=== PATIENT | male | born 1970 | race Caucasian/White ===

== ENCOUNTER 2016-12-02 16:20 | Emergency (ER) | payer OTHER ==
[2016-12-02 16:27] VITALS: RESP 16; O2SAT 95
--- NOTE | 2016-12-02 16:40 | CPEKG ---
Heart Rate: 98 RR Interval: 612 P-R Interval: 152 QRSD Interval: 96 QT Interval: 348 QTC Interval: 445 P Kindred: 73 QRS Kindred: 82 T Wave Kindred: 33 EKG Severity - NORMAL ECG - EKG Impression: SINUS RHYTHM Electronically Signed By: Lai Murphy 02-Dec-2016 17:25:33
--- NOTE | 2016-12-02 17:01 | EDPHY ---
H & P Time Seen by Provider: 12/02/16 16:32 HPI/ROS: CHIEF COMPLAINT: Palpitations and cough HISTORY OF PRESENT ILLNESS: This 46-year-old man had symptoms 1st on Thursday when he was driving to work. He felt his heart was "stopped" and felt like he was going to faint but did not actually pass out. He then felt his heart racing and felt congested in his chest with symptoms resolved after several minutes. On Thursday he felt better but still to cough. He had a cough on Thursday although the last 2 days he has felt intermittent irregular heartbeat and some tightness in his chest and continued cough. These were not associated with syncope. Symptoms not currently present. REVIEW OF SYSTEMS: Eye: no change in vision ENT: no sore throat Cardiac: HPI Pulmonary: No hemoptysis or shortness of breath Abdomen: no vomiting, diarrhea, abdominal pain Musculoskeletal: no back pain or leg swelling Skin: no rash Neuro: no headache Constitutional: no fever : no urinary symptoms A comprehensive 10 point review of systems is otherwise negative aside from elements mentioned in the history of present illness. PAST MEDICAL HISTORY: Negative. Denies hypercholesterolemia, diabetes, hypertension. Social history: No tobacco or cocaine. Negative family history for venous thromboembolism or coronary artery disease at his age. No recent prolonged travel or immobilization. General Appearance: Alert and conversant, cooperative. Eyes: No scleral icterus. ENT, Mouth: Normal mucous membranes. Respiratory: Normal respiratory effort, breath sounds equal, lungs are clear to auscultation. Cardiovascular: Regular rate and rhythm. Gastrointestinal: Abdomen is soft and non tender. Neurological: Alert and oriented x3. Normally conversant. Face symmetric, normal movement and sensation in all extremities. Skin: Warm and dry, no rashes. Musculoskeletal: No peripheral edema and no joint swelling. No calf tenderness. Psychiatric: Not agitated. Emergency Department course/MDM: Palpitations without actual syncope and no cardiac risk factors. Chest x-ray, EKG, labs to include troponin and D-dimer. Pretest probability for pulmonary embolism is low. 1810: Results discussed, I feel the likelihood of malignant dysrhythmia is low. Referral to Cardiology for possible outpatient Holter monitoring. No symptoms in emergency department and no dysrhythmia noted on monitoring. Smoking Status: Never smoked Constitutional: Initial Vital Signs Temperature (C) 36.9 C 12/02/16 16:22 Heart Rate 108 H 07/18/17 16:22 Respiratory Rate 16 12/02/16 16:22 Blood Pressure 172/101 H 12/02/16 16:22 O2 Sat (%) 95 12/02/16 16:22 O2 Delivery Mode Room Air Allergies/Adverse Reactions: amoxicillin Allergy (Verified 12/02/16 16:24) Sulfa (Sulfonamide Antibiotics) Allergy (Verified 12/02/16 16:24) Medical Decision Making - Diagnostics Imaging Results: Imaging Impressions Chest X-Ray 12/02/16 17:00 Impression: Normal chest x-ray. Hyperexpanded lungs. This can be seen with increased inspiratory effort. Differential Diagnosis: Differential considered including but not limited to atrial fibrillation, SVT, ventricular tachycardia, atrial flutter. - Data Points Laboratory Results: Laboratory Results 12/02/16 16:35 12/02/16 16:35 12/02/16 12/02/16 12/02/16 16:35 16:35 16:35 WBC 6.52 10^3/uL 10^3/uL (3.80-9.50) RBC 4.72 10^6/uL 10^6/uL (4.40-6.38) Hgb 15.0 g/dL g/dL (13.7-17.5) Hct 41.0 % % (40.0-51.0) MCV 86.9 fL fL (81.5-99.8) MCH 31.8 pg pg (27.9-34.1) MCHC 36.6 g/dL g/dL (32.4-36.7) RDW 13.2 % % (11.5-15.2) Plt Count 265 10^3/uL 10^3/uL (150-400) MPV 9.2 fL fL (8.7-11.7) Neut % (Auto) 64.8 % % (39.3-74.2) Lymph % (Auto) 25.0 % % (15.0-45.0) [place] % (Auto) 7.8 % % (4.5-13.0) Eos % (Auto) 1.4 % % (0.6-7.6) Baso % (Auto) 0.5 % % (0.3-1.7) Nucleat RBC Rel Count 0.0 % % (0.0-0.2) Absolute Neuts (auto) 4.23 10^3/uL 10^3/uL (1.70-6.50) Absolute Lymphs (auto) 1.63 10^3/uL 10^3/uL (1.00-3.00) Absolute Monos (auto) 0.51 10^3/uL 10^3/uL (0.30-0.80) Absolute Eos (auto) 0.09 10^3/uL 10^3/uL (0.03-0.40) Absolute Basos (auto) 0.03 10^3/uL 10^3/uL (0.02-0.10) Absolute Nucleated RBC 0.00 10^3/uL 10^3/uL (0-0.01) Immature Gran % 0.5 % % (0.0-1.1) Immature Gran # 0.03 10^3/uL 10^3/uL (0.00-0.10) D-Dimer < 0.27 ug/mLFEU ug/mLFEU (0.00-0.50) Sodium 141 mEq/L mEq/L (134-144) Potassium 4.1 mEq/L mEq/L (3.5-5.2) Chloride 109 mEq/L mEq/L (97-110) Carbon Dioxide 17 mEq/l L mEq/l (22-31) Anion Gap 15 mEq/L mEq/L (8-16) BUN 15 mg/dL mg/dL (7-23) Creatinine 1.2 mg/dL mg/dL (0.7-1.3) Estimated GFR > 60 Glucose 112 mg/dL H mg/dL (70-100) Calcium 10.1 mg/dL mg/dL (8.5-10.4) Troponin I < 0.012 ng/mL ng/mL (0-0.034) Departure - Departure Disposition: Home, Routine, Self-Care Clinical Impression: Palpitations Condition: Good Instructions: Palpitations (ED) Additional Instructions: Please follow-up with stephanie Dash, your referred to Dr. Arpit Allen from Cardiology. Call tomorrow for follow-up this week and discuss with them the appropriateness of outpatient Holter monitoring. Referrals: BRADY GUZMAN [Primary Care Provider] - As per Instructions Arpit Allen MD [Medical Doctor] - As per Instructions
[2016-12-02 17:07] LABS: % IMMATURE GRANULYOCYTES 0.5 % (0.0-1.1); ABSOLUTE IMMATURE GRANULOCYTES 0.03 10^3/uL (0.00-0.10); ADD DIFF? NO; ADD MORPH? NO; ADD SCAN? NO; ATYPICAL LYMPHOCYTE FLAG 10 (0-99); FRAGMENT RBC FLAG 0 (0-99); LEFT SHIFT FLG 0 (0-99); LIPEMIA HEMOLYSIS FLAG 90 (0-99); MEAN CELL HEMOGLOBIN 31.8 pg (27.9-34.1); MEAN CELL HEMOGLOBIN CONCENTR. 36.6 g/dL (32.4-36.7); MEAN CELL VOLUME 86.9 fL (81.5-99.8); MEAN PLATELET VOLUME 9.2 fL (8.7-11.7); PLATELET CLUMPS FLAG 0 (0-99); PLATELET COUNT 265 10^3/uL (150-400); RED BLOOD CELL COUNT 4.72 10^6/uL (4.40-6.38); RED CELL DISTRIBUTION WIDTH 13.2 % (11.5-15.2)
[2016-12-02 17:11] LABS: ANION GAP 15 mEq/L (8-16); CALCIUM 10.1 mg/dL (8.5-10.4); CARBON DIOXIDE 17 mEq/l (22-31); CHLORIDE 109 mEq/L (97-110); CREATININE 1.2 mg/dL (0.7-1.3); GLOMERULAR FILTRATION RATE > 60; GLUCOSE 112 mg/dL (70-100); POTASSIUM 4.1 mEq/L (3.5-5.2); SODIUM 141 mEq/L (134-144)
[2016-12-02 17:23] LABS: TROPONIN I < 0.012 ng/mL (0-0.034)
[2016-12-02 18:27] VITALS: BP 139/92; PULSE 79; TEMP 98.2
== END 2016-12-02 18:27 | disposition home or self-care (01) ==
DX: R00.2 Palpitations (principal)